=== PATIENT | female | born 2000 | race Caucasian/White ===

== ENCOUNTER 2022-11-10 12:44 | Emergency (ER) | payer OTHER ==
[2022-11-10 13:32] LABS: Bilirubin Negative (Negative); Blood, Urine Trace (Negative); Glucose, Urine (Dipstick) 100 mg/dL (Negative); Ketone, Urine Negative (Negative); Leukocyte Moderate (Negative); Nitrite Negative (Negative); Protein, Urine (Dipstick) Trace mg/dL (Neg-Trace)
[2022-11-10 13:40] LABS: Bacteria/HPF 2+ HPF (None Seen); Clarity Hazy (Clear); RBC/HPF 0-3 HPF (0-3)
[2022-11-10 13:42] LABS: #Eosinphils 0.1 thou/uL (0.0-0.7); #Lymphocytes 2.4 thou/uL (1.20-3.40); #Monocytes 0.3 thou/uL (0.11-0.59); #Neutrophils 5.2 thou/uL (1.40-6.50); %Basophils 0.6 % (0.0-1.0); %Eosinophils 0.9 % (0.0-10.0); %Lymphocytes 29.7 % (21.0-51.0); %Monocytes 3.7 % (0.0-10.0); %Neutrophils 65.1 % (42.0-75.0); Hemoglobin 9.2 g/dL (12.0-16.0); Mean Corpuscular HGB CONC 30.2 g/dL (32.0-36.0); Mean Corpuscular Hemoglobin 23.4 pg (27.0-31.0); Mean Corpuscular Volume 77.5 fl (78.0-98.0); Mean Platelet Volume 9.1 fL (7.4-10.4); Platelet Count 242 10x3/uL (130-400); RBC Distribution Width 18.9 % (11.5-14.5); Red Blood Cell (RBC) Count 3.94 mill/uL (4.20-5.40); White Blood Cell (WBC) Count 7.9 10x3/uL (4.8-10.8)
[2022-11-10 14:03] LABS: ALT (SGPT) 9 U/L (8-55); AST (SGOT) 13 U/L (5-34); Albumin 3.4 g/dL (3.5-5.0); Alkaline Phosphatase 192 U/L (40-110); Anion Gap 17 mmol/L (10-20); BUN (Urea Nitrogen) 9 mg/dL (7.0-18.7); Bilirubin, Total 0.3 mg/dL (0.2-1.2); Calc. Creatinine Clearance 0 mL/min (70-130); Calcium 8.6 mg/dL (7.8-10.44); Carbon Dioxide 17 mmol/L (22-29); Chloride 106 mmol/L (98-107); Estimated GFR 128; Globulin 2.5 g/dL (2.4-3.5); Glucose 151 mg/dL (70-105); Potassium 3.6 mmol/L (3.5-5.1); Protein, Total 5.9 g/dL (6.0-8.3); Sodium 136 mmol/L (136-145)
== END 2022-11-10 14:38 | disposition short-term general hospital (02) ==
LOC: NAV ERS 12:44
DX: O47.1 False labor at or after 37 completed weeks of gestation (principal); Z3A.37 37 weeks gestation of pregnancy
CPT/HCPCS: 80053; 81003; 81015; 85025; 99284

== ENCOUNTER 2022-11-24 12:47 | Emergency (ER) | payer OTHER ==
[2022-11-24 13:17] LABS: #Basophils 0.1 thou/uL (0.0-0.2); #Eosinphils 0.1 thou/uL (0.0-0.7); #Monocytes 0.7 thou/uL (0.11-0.59); #Neutrophils 8.1 thou/uL (1.40-6.50); %Basophils 0.9 % (0.0-1.0); %Eosinophils 0.8 % (0.0-10.0); %Monocytes 5.4 % (0.0-10.0); %Neutrophils 67.9 % (42.0-75.0); ALT (SGPT) 6 U/L (8-55); AST (SGOT) 13 U/L (5-34); Alkaline Phosphatase 233 U/L (40-110); Anion Gap 17 mmol/L (10-20); BUN (Urea Nitrogen) 11 mg/dL (7.0-18.7); Bilirubin, Total 0.3 mg/dL (0.2-1.2); Calc. Creatinine Clearance 0 mL/min (70-130); Calcium 9.4 mg/dL (7.8-10.44); Carbon Dioxide 19 mmol/L (22-29); Chloride 104 mmol/L (98-107); Estimated GFR 127; Globulin 3.6 g/dL (2.4-3.5); Glucose 72 mg/dL (70-105); Hemoglobin 10.6 g/dL (12.0-16.0); Mean Corpuscular HGB CONC 30.3 g/dL (32.0-36.0); Mean Corpuscular Volume 76.1 fl (78.0-98.0); Mean Platelet Volume 9.5 fL (7.4-10.4); Platelet Count 250 10x3/uL (130-400); Potassium 3.9 mmol/L (3.5-5.1); Protein, Total 7.6 g/dL (6.0-8.3); RBC Distribution Width 18.1 % (11.5-14.5); Red Blood Cell (RBC) Count 4.63 mill/uL (4.20-5.40); Sodium 136 mmol/L (136-145); White Blood Cell (WBC) Count 11.9 10x3/uL (4.8-10.8)
[2022-11-24] MEDS ORDERED: Sodium Chloride 0.9% 1,000 ML ONE (13:18)
== END 2022-11-24 13:30 | disposition short-term general hospital (02) ==
LOC: NAV ERS 12:47
DX: O60.03 Preterm labor without delivery, third trimester (principal); Z3A.40 40 weeks gestation of pregnancy
CPT/HCPCS: 80053; 85025; 86850; 86900; 86901; 99284; J7050

== ENCOUNTER 2023-11-15 18:24 | Emergency (ER) | payer MEDICAID ==
[2023-11-15] MEDS ORDERED: Sodium Chloride 0.9% 1,000 ML ONE ×2 (19:27→23:02)
[2023-11-15] MEDS ORDERED: diphenhydrAMINE 50 MG/ML VIAL ONE (19:27)
[2023-11-15] MEDS ORDERED: Metoclopramide HCl 10 MG (2 mL) VIAL ONE (19:27)
[2023-11-15] MEDS ORDERED: Sodium Chloride 0.9% 100 ML ONE (19:27)
[2023-11-15 19:42] LABS: #Lymphocytes 1.6 thou/uL (1.20-3.40); #Monocytes 0.5 thou/uL (0.11-0.59); #Neutrophils 6.4 thou/uL (1.40-6.50); %Basophils 0.5 % (0.0-1.0); %Eosinophils 0.2 % (0.0-10.0); %Lymphocytes 18.3 % (21.0-51.0); %Monocytes 5.6 % (0.0-10.0); %Neutrophils 75.4 % (42.0-75.0); Hematocrit 40.4 % (36.0-47.0); Mean Corpuscular HGB CONC 32.1 g/dL (32.0-36.0); Mean Corpuscular Hemoglobin 27.8 pg (27.0-31.0); Mean Corpuscular Volume 86.6 fl (78.0-98.0); Mean Platelet Volume 7.4 fL (7.4-10.4); Platelet Count 262 10x3/uL (130-400); RBC Distribution Width 12.5 % (11.5-14.5); Red Blood Cell (RBC) Count 4.67 mill/uL (4.20-5.40); White Blood Cell (WBC) Count 8.5 10x3/uL (4.8-10.8)
[2023-11-15 19:57] LABS: ALT (SGPT) 15 U/L (8-55); AST (SGOT) 14 U/L (5-34); Albumin 4.5 g/dL (3.5-5.0); Alkaline Phosphatase 47 U/L (40-110); Anion Gap 20 mmol/L (10-20); BUN (Urea Nitrogen) 6 mg/dL (7.0-18.7); Bilirubin, Total 0.5 mg/dL (0.2-1.2); Calc. Creatinine Clearance 0 mL/min (70-130); Calcium 9.8 mg/dL (7.8-10.44); Carbon Dioxide 12 mmol/L (22-29); Chloride 103 mmol/L (98-107); Estimated GFR 126; Globulin 2.9 g/dL (2.4-3.5); Glucose 75 mg/dL (70-105); Potassium 3.2 mmol/L (3.5-5.1); Protein, Total 7.4 g/dL (6.0-8.3); Sodium 132 mmol/L (136-145)
[2023-11-15] MEDS ORDERED: Ondansetron PF 4 MG/2 ML Vial ONE (23:02)
== END 2023-11-16 02:19 | disposition short-term general hospital (02) ==
LOC: NAV ERS 18:24
DX: O21.1 Hyperemesis gravidarum with metabolic disturbance (principal); I95.9 Hypotension, unspecified; Z3A.08 8 weeks gestation of pregnancy; Z87.891 Personal history of nicotine dependence
CPT/HCPCS: 80053; 85025; 96361; 96365; 96366; 96375; J1200; J2405; J2765; J3490; J7050

== ENCOUNTER 2024-02-06 12:36 | Emergency (ER) | payer MEDICAID ==
[2024-02-06] MEDS ORDERED: Sodium Chloride 0.9% 1,000 ML ONE (13:46)
[2024-02-06] MEDS ORDERED: Morphine 2 MG/ML VIAL ONE (13:46)
[2024-02-06] MEDS ORDERED: Ondansetron PF 4 MG/2 ML Vial ONE (13:46)
[2024-02-06 14:01] LABS: Bilirubin Small (Negative); Blood, Urine Negative (Negative); Glucose, Urine (Dipstick) Negative (Negative); Ketone, Urine 15 mg/dL (Negative); Leukocyte Negative (Negative); Nitrite Negative (Negative); Protein, Urine (Dipstick) 30 mg/dL (Neg-Trace); pH, Urine 6.5 (5.0-9.0)
[2024-02-06 14:07] LABS: #Lymphocytes 0.7 thou/uL (1.20-3.40); #Monocytes 0.3 thou/uL (0.11-0.59); #Neutrophils 5.9 thou/uL (1.40-6.50); %Basophils 0.6 % (0.0-1.0); %Eosinophils 0.2 % (0.0-10.0); %Lymphocytes 9.4 % (21.0-51.0); %Monocytes 4.5 % (0.0-10.0); %Neutrophils 85.2 % (42.0-75.0); Amphetamine Not Detected (NotDetected); Barbiturates Screen Not Detected (NotDetected); Benzodiazepine Screen Not Detected (NotDetected); Cocaine Metabolite Screen Not Detected (NotDetected); Hematocrit 29.1 % (36.0-47.0); Hemoglobin 9.2 g/dL (12.0-16.0); Mean Corpuscular HGB CONC 31.4 g/dL (32.0-36.0); Mean Platelet Volume 7.4 fL (7.4-10.4); Methadone Not Detected (NotDetected); Methamphetamine Not Detected (NotDetected); Opiate Screen Not Detected (NotDetected); Oxycodone Screen Not Detected (NotDetected); Phencyclidine (PCP) Not Detected (NotDetected); Platelet Count 215 10x3/uL (130-400); RBC Distribution Width 12.3 % (11.5-14.5); Red Blood Cell (RBC) Count 3.39 mill/uL (4.20-5.40); THC/Cannabinoid Screen Detected (NotDetected); Tricyclic Screen Not Detected (NotDetected)
[2024-02-06 14:08] LABS: Specific Gravity, Urine 1.028 (1.002-1.036)
[2024-02-06 14:09] LABS: CAUTI Indications for Culture Pelvic or flank pain; WBC/HPF 0-3 HPF (0-3)
[2024-02-06 14:10] LABS: Urine Culture Reflex No No
[2024-02-06 14:11] LABS: Clarity Cloudy (Clear)
[2024-02-06 14:21] LABS: ALT (SGPT) 9 U/L (8-55); AST (SGOT) 15 U/L (5-34); Albumin 3.2 g/dL (3.5-5.0); Alkaline Phosphatase 54 U/L (40-110); Anion Gap 13 mmol/L (10-20); BUN (Urea Nitrogen) 8 mg/dL (7.0-18.7); Bilirubin, Total 0.2 mg/dL (0.2-1.2); Calc. Creatinine Clearance 0 mL/min (70-130); Calcium 8.5 mg/dL (7.8-10.44); Carbon Dioxide 21 mmol/L (22-29); Chloride 103 mmol/L (98-107); Estimated GFR 132; Globulin 3.7 g/dL (2.4-3.5); Glucose 81 mg/dL (70-105); Potassium 3.5 mmol/L (3.5-5.1); Protein, Total 6.9 g/dL (6.0-8.3); Sodium 133 mmol/L (136-145)
[2024-02-06 14:28] LABS: Lipase 2 U/L (8-78)
== END 2024-02-06 15:29 | disposition home or self-care (01) ==
LOC: NAV ERS 12:36
DX: O26.892 Other specified pregnancy related conditions, second trimester (principal); O99.012 Anemia complicating pregnancy, second trimester; O99.332 Smoking (tobacco) complicating pregnancy, second trimester; Z3A.22 22 weeks gestation of pregnancy
CPT/HCPCS: 80053; 80306; 81001; 83690; 85025; 96361; 96374; 96375; J2272; J2405; J7050

== ENCOUNTER 2025-03-17 08:26 | Emergency (ER) | payer MEDICAID ==
[2025-03-17 09:01] LABS: #Basophils 0.1 thou/uL (0.0-0.2); #Eosinophils 0.0 thou/uL (0.0-0.7); #Lymphocytes 1.4 thou/uL (1.20-3.40); #Monocytes 0.5 thou/uL (0.11-0.59); #Neutrophils 8.6 thou/uL (1.40-6.50); %Basophils 0.8 % (0.0-1.0); %Eosinophils 0.1 % (0.0-10.0); %Lymphocytes 12.9 % (21.0-51.0); %Monocytes 4.9 % (0.0-10.0); %Neutrophils 81.3 % (42.0-75.0); Hematocrit 36.0 % (36.0-47.0); Hemoglobin 12.3 g/dL (12.0-16.0); Mean Corpuscular Hemoglobin 28.9 pg (27.0-31.0); Mean Corpuscular Volume 84.3 fl (78.0-98.0); Platelet Count 350 10x3/uL (130-400); Red Blood Cell (RBC) Count 4.28 mill/uL (4.20-5.40); White Blood Cell (WBC) Count 10.6 10x3/uL (4.8-10.8)
[2025-03-17 09:09] LABS: ALT (SGPT) 13 U/L (Less than 34); AST (SGOT) 21 U/L (11-34); Albumin 4.4 g/dL (3.1-4.5); Alkaline Phosphatase 48 U/L (40-110); Anion Gap 19 mmol/L (10-20); BUN (Urea Nitrogen) 5 mg/dL (7.0-18.7); Bilirubin, Total 0.4 mg/dL (0.3-1.2); Calc. Creatinine Clearance 0 mL/min (70-130); Calcium 9.9 mg/dL (7.8-10.44); Carbon Dioxide 10 mmol/L (22-29); Chloride 107 mmol/L (98-107); Globulin 3.2 g/dL (2.4-3.5); Glucose 100 mg/dL (70-105); Lipase 6 U/L (8-78); Potassium 3.3 mmol/L (3.5-5.1); Sodium 133 mmol/L (136-145)
[2025-03-17] MEDS ORDERED: Famotidine/PF 20 mg/2ml Vial ONE (09:21)
[2025-03-17] MEDS ORDERED: Ondansetron PF 4 MG/2 ML Vial ONE (09:21)
[2025-03-17 09:39] LABS: Glucose, Urine (Dipstick) Negative (Negative); Leukocyte Negative (Negative); Protein, Urine (Dipstick) 100 mg/dL (Neg-Trace); Specific Gravity, Urine Greater/Equal 1.030 (1.005-1.030)
[2025-03-17 09:46] LABS: Cocaine Metabolite Screen Negative (Negative); THC/Cannabinoid Screen PRELIM POSITIVE (Negative); Tricyclic Screen Negative (Negative)
[2025-03-17 10:04] LABS: RBC/HPF 0-3 HPF (0-3)
[2025-03-17] MEDS ORDERED: D5 0.9% NS w/ 20 mEq KCl 1,000 ML ONE (12:20)
== END 2025-03-17 14:48 | disposition short-term general hospital (02) ==
LOC: NAV ERS 08:26
DX: O21.0 Mild hyperemesis gravidarum (principal); O99.611 Diseases of the digestive system complicating pregnancy, first trimester; K29.00 Acute gastritis without bleeding; O99.281 Endocrine, nutritional and metabolic diseases complicating pregnancy, first trimester; E87.6 Hypokalemia; O98.511 Other viral diseases complicating pregnancy, first trimester; A08.4 Viral intestinal infection, unspecified; O99.331 Smoking (tobacco) complicating pregnancy, first trimester; F17.210 Nicotine dependence, cigarettes, uncomplicated; Z3A.12 12 weeks gestation of pregnancy
CPT/HCPCS: 80053; 80306; 81001; 83690; 85025; 96361; 96374; 96375; J1308; J2405; J2550; J3480; J7042